=== PATIENT | female | born 1990 | race Two or more races ===

== ENCOUNTER 2020-11-13 08:18 | Emergency (ER) | payer MEDICAID, OTHER ==
[~2020-11-13] VITALS: Ht 157.5 cm; Wt 88.5 kg
[2020-11-13 08:20] VITALS: BP 115/80
[2020-11-13 08:52] LABS: Basophils # (auto) 0.1 10 ^3/uL (0-0.2); Eosinophils # (auto) 0.1 10 ^3/uL (0-0.8); Eosinophils % (auto) 1.1 % (0.0-7.0); Hematocrit 42.8 % (36.0-46.0); Hemoglobin 14.6 g/dL (12.2-16.2); Lymphocytes # (auto) 2.1 10 ^3/uL (0.4-5.4); Mean Corpuscular Hemoglobin 29.7 pg (28.0-32.0); Mean Corpuscular Hgb Conc. 34.1 g/dL (32.0-36.0); Mean Corpuscular Volume 86.9 fL (80.0-100.0); Monocytes # (auto) 0.4 10 ^3/uL (0-1.3); Monocytes % (auto) 3.6 % (0.0-12.0); Neutrophils # (auto) 7.4 10 ^3/uL (1.6-8.6); Neutrophils % (auto) 73.3 % (37.0-80.0); Red Blood Cells 4.93 10^6/uL (4.0-5.20); Red Cell Distribution Width 13.4 % (11.8-14.3)
[2020-11-13 09:08] LABS: Urine Bacteria NONE SEEN /hpf (None Seen); Urine Blood TRACE /uL (Negative); Urine Specific Gravity 1.018 (1.001-1.035); Urine WBC 2 /hpf (0 - 5)
[2020-11-13 09:25] LABS: Albumin 3.7 g/dL (3.4-5.0); Anion Gap 6 (5-15); Blood Urea Nitrogen 5 mg/dL (7-18); Calcium 9.1 mg/dL (8.5-10.1); Carbon Dioxide 27 mmol/L (21-32); Chloride 107 mmol/L (98-107); Glucose 111 mg/dL (74-106); Lipase 94 U/L (73-393); Sodium 140 mmol/L (136-145)
[2020-11-13 09:37] LABS: Alanine Aminotransferase 22 U/L (13-56); Alkaline Phosphatase 93 U/L (45-117); Aspartate Aminotransferase 17 U/L (15-37); BUN/Creatinine Ratio 6.3; Bilirubin, Total 0.4 mg/dL (0.2-1.0); GFR African American 111 mL/min; GFR Non-African American 92 mL/min
== END 2020-11-13 11:10 | disposition home or self-care (01) ==
LOC: ER 08:18
DX: N39.0 Urinary tract infection, site not specified (principal); R11.2 Nausea with vomiting, unspecified
CPT/HCPCS: 36415; 80053; 81001; 83690; 84484; 85025